=== PATIENT | female | born 1960 | race Caucasian/White ===

== ENCOUNTER 2016-12-06 10:44 | Day surgery (SDC) | payer OTHER ==
[~2016-12-06 10:44] MED LIST: Lactated Ringers 1,000 ML IV SCH; Lidocaine 1%/Sod Bicarbonate in NS 8.4% 1 ML Syringe PRN; Sodium Chloride 0.9% 10 ML Syringe FLUSH PRN
--- NOTE | 2016-12-06 11:17 | PCM.PREANE ---
Preanesthetic Assessment - Anesthesia/Transfusion/Family Hx Anesthesia History: Prior Anesthesia Without Reaction Type of Anesthesia Reaction: Excessive Nausea/Vomiting Family History of Anesthesia Reaction: No Transfusion History: No Prior Transfusion(s) - Review of Systems General: No Symptoms Pulmonary: No Symptoms Cardiovascular: No Symptoms Gastrointestinal: Abdominal Pain, Nausea (since may) Neurological: No Symptoms Other: Reports: Diabetes (pre), Thyroid Problems - Physical Assessment NPO Status Date: 12/05/16 NPO Status Time: 22:30 Pulse: 76 O2 Sat by Pulse Oximetry: 95 Respiratory Rate: 16 Blood Pressure: 134/83 Temperature: 99.3 F Height: 5 ft 2 in Weight: 68 kg ASA Class: 2 Mental Status: Alert & Oriented x3 Airway Class: Mallampati = 1 Dentition: Reports: Normal Dentition Thyro-Mental Finger Breadths: 3 Mouth Opening Finger Breadths: 3 ROM/Head Extension: Full Lungs: Clear to Auscultation, Normal Respiratory Effort Cardiovascular: Regular Rate, Regular Rhythm - Lab Values: Laboratory Last Values POC Glucose 87 mg/dL (70-105) 12/06/16 11:07 - Allergies Allergies/Adverse Reactions: Allergies Allergy/AdvReac Type Severity Reaction Status Date / Time codeine Allergy Hives Verified 12/05/16 15:21 - Blood Blood Available: No - Acknowledgements Anesthesia Type Planned: MAC Pt an Appropriate Candidate for the Planned Anesthesia: Yes Alternatives and Risks of Anesthesia Discussed w Pt/Guardian: Yes Pt/Guardian Understands and Agrees with Anesthesia Plan: Yes PreAnesthesia Questionnaire HEENT History: Reports: Allergic Rhinitis Cardiovascular History: Reports: Other (See Below) Other Cardiovascular History: chest pain, dyslipidemia Respiratory History: Reports: Asthma (albuteral infrequent), Other (See Below) Other Respiratory History: cough Gastrointestinal History: Reports: GERD, Helicobacter Pylori, Other (See Below) Other Gastrointestinal History: nausea Genitourinary History: Reports: None 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 (See Below) Other OB/BYN History: senile atrophic vaginitis Neurological History: Reports: None Endocrine/Metabolic History: Reports: Diabetes, Type II (pre), Hypothyroidism Hematologic History: Reports: None Immunologic History: Reports: None Oncologic (Cancer) History: Reports: Thyroid Dermatologic History: Reports: Other (See Below) Other Dermatologic History: benign skin lesion of face - Past Surgical History Head Surgeries/Procedures: Reports: None HEENT Surgical History: Reports: Naso-Sinus Surgery, Oral Surgery, Tonsillectomy GI Surgical History: Reports: Colonoscopy Female Surgical History: Reports: Hysterectomy, Tubal Ligation Endocrine Surgical History: Reports: Thyroidectomy Neurological Surgical History: Reports: None - SUBSTANCE USE Smoking Status *Q: Never Smoker Tobacco Use Within Last Twelve Months: No Second Hand Smoke Exposure: No Days Per Week of Alcohol Use: 0 Recreational Drug Use History: No - HOME MEDS Home Medications: Home Meds Albuterol Sulfate [Proair Hfa] 1 - 2 puff INH Q4H PRN 12/05/16 [History] Calcium Carbonate/Vitamin D3 [Calcium 500 + Vit D 400] 1 tab PO DAILY 12/05/16 [ History] Esomeprazole Magnesium [Nexium] 20 mg PO BID 12/05/16 [History] Fluticasone Propionate [Flonase] 1 spray NASBOTH BID PRN 12/05/16 [History] Fluticasone Propionate [Flovent HFA 44 MCG] 1 puff INH BID 12/05/16 [History] Lactobacillus Acidophilus [Probiotic] 1 cap PO DAILY 12/05/16 [History] Levothyroxine [Synthroid] 88 mcg PO DAILY 12/05/16 [History] Lutein/Minerals/Vit A,C & E [Ocuvite] 1 tab PO DAILY 12/05/16 [History] Meloxicam [Meloxicam] 0.5 - 1 tab PO DAILY PRN 12/05/16 [History] Omeprazole 20 mg PO DAILY 12/05/16 [History] Tretinoin/Emollient Base [Tretinoin 0.05% Emollient Crm] 1 applic TOP BEDTIME [History] atorvaSTATin Calcium [Atorvastatin Calcium] 10 mg PO BEDTIME 12/05/16 [History] - CURRENT (IN HOUSE) MEDS Current Meds: Current Medications Lactated Ringer's (Ringers, Lactated) 1,000 mls @ 125 mls/hr IV ASDIRECTED RIKKI Stop: 12/06/16 23:00 Lidocaine/Sodium Bicarbonate (Buffered Lidocaine 1% In Ns 8.4%) 0.25 ml .XX ONETIME PRN PRN Reason: Prior to IV Start Stop: 12/06/16 18:00 Sodium Chloride (Saline Flush) 10 ml FLUSH ASDIRECTED PRN PRN Reason: Keep Vein Open Stop: 12/06/16 18:00
[2016-12-06] MEDS ORDERED: Propofol 200 MG/20 ML SDV ONE (12:43)
[2016-12-06] MEDS ORDERED: Lidocaine 1% 4 ML ONE (12:43)
[2016-12-06] MEDS ORDERED: fentaNYL 100 MCG/2 ML SDV ONE (12:44)
[2016-12-06] MEDS ORDERED: Ondansetron 4 MG/2 ML SDV IVPUSH PRN (12:54)
[2016-12-06 12:55] VITALS: BP 120/65
--- NOTE | 2016-12-06 12:55 | PCM.OPNOTE ---
- General Post-Op/Procedure Note Date of Surgery/Procedure: 12/06/16 Operative Procedure(s): EGD with GE junction biopsies 3 using cold forceps Findings: Multiple small glandular type gastric polyps but otherwise normal endoscopic evaluation with no endoscopic evidence of esophagitis Pre Op Diagnosis: Chronic GERD Post-Op Diagnosis: Multiple glandular polyps within the body of stomach Anesthesia Technique: MAC, Moderate Sedation Primary Surgeon: He Hollins Pathology: GE junction biopsy 3 EBL in mLs: 0 Complications: None Condition: Good Free Text/Narrative:: After adequate IV sedation and analgesia was obtained the patient was placed on her left side with monitoring. A lubricated upper endoscope was inserted into the esophagus and advanced under direct vision towards the stomach. Additional air was given here. The scope was then introduced into the duodenum. The second and first parts were endoscopically normal. The antrum was unremarkable as well. In the retroflexed view there was no hiatal hernia. There were small multiple gastric polyps seen throughout the body of the stomach. The fundus and cardiac regions were without endoscopic peptic change. The folds were grossly normal. I withdrew the scope to the GE junction which was endoscopically normal. 3 biopsies were taken for histologic review. The body of the esophagus was unremarkable. Photographs were taken for the patient and for the record. Air was removed as I finished the procedure which she tolerated well.
--- NOTE | 2016-12-06 12:55 | PCM48HPAN ---
Post Anesthesia Note - EVALUATION WITHIN 48HRS OF ANESTHETIC Vital Signs in Normal Range: Yes Patient Participated in Evaluation: Yes Respiratory Function Stable: Yes Airway Patent: Yes Cardiovascular Function Stable: Yes Hydration Status Stable: Yes Pain Control Satisfactory: Yes Nausea and Vomiting Control Satisfactory: Yes Mental Status Recovered: Yes
== END 2016-12-06 13:23 | disposition home or self-care (01) ==
LOC: JD.SDS 10:44
PROVIDERS: ATTEND Surgery
DX: K31.7 Polyp of stomach and duodenum (principal); J45.909 Unspecified asthma, uncomplicated; K21.9 Gastro-esophageal reflux disease without esophagitis; E78.2 Mixed hyperlipidemia; E03.8 Other specified hypothyroidism; E11.9 Type 2 diabetes mellitus without complications; Z68.30 Body mass index [BMI] 30.0-30.9, adult; Z88.8 Allergy status to other drugs, medicaments and biological substances; Z79.899 Other long term (current) drug therapy; Z90.710 Acquired absence of both cervix and uterus; Z98.890 Other specified postprocedural states; Z98.51 Tubal ligation status; Z90.89 Acquired absence of other organs
CPT/HCPCS: 43239; 82962; J3010; J7120; 00740; J2704

== ENCOUNTER 2024-10-02 07:36 | Day surgery (SDC) | payer MEDICARE ==
[~2024-10-02 07:36] MED LIST changes: -Lactated Ringers 1,000 ML IV SCH; -Lidocaine 1%/Sod Bicarbonate in NS 8.4% 1 ML Syringe PRN; +Sodium Chloride 0.9% 10 ML Syringe FLUSH SCH
[2024-10-02] MEDS: Lactated Ringers 1,000 ML IV SCH (08:05)
[2024-10-02] MEDS ORDERED: Lidocaine 1% 4 ML ONE (08:05)
[2024-10-02] MEDS ORDERED: Propofol 200 MG/20 ML SDV ONE (08:06)
[2024-10-02] MEDS ORDERED: Midazolam 1 MG/ML 2 ML SDV ONE (08:06)
[2024-10-02 11:29] VITALS: BP 118/67; PULSE 70
== END 2024-10-02 10:40 | disposition home or self-care (01) ==
LOC: JD.SDS 07:36
PROVIDERS: ATTEND Surgery
DX: Z12.11 Encounter for screening for malignant neoplasm of colon (principal); K31.89 Other diseases of stomach and duodenum; K31.7 Polyp of stomach and duodenum; K57.30 Diverticulosis of large intestine without perforation or abscess without bleeding; K21.00 Gastro-esophageal reflux disease with esophagitis, without bleeding; K62.2 Anal prolapse; I10 Essential (primary) hypertension; E03.9 Hypothyroidism, unspecified; E11.9 Type 2 diabetes mellitus without complications; Z88.5 Allergy status to narcotic agent; Z79.899 Other long term (current) drug therapy; Z79.890 Hormone replacement therapy
CPT/HCPCS: 43239; 45378; C9777; J2003; J2250; J2704; J7120; 00813; 88305